=== PATIENT | female | born 1950 | race American Indian/Alaskan Native ===

== ENCOUNTER 2019-01-06 13:17 | Emergency (ER) | payer OTHER ==
[2019-01-06 13:17] VITALS: BMI 38.7
[2019-01-06 13:33] VITALS: RESP 20
--- NOTE | 2019-01-06 14:53 | CT ---
Date of service: 01/06/2019 PROCEDURE: CT HEAD WITHOUT CONTRAST. HISTORY: Head injury s/p fall at work today COMPARISON: Noncontrast head CT performed 03/27/16 TECHNIQUE: Axial computed tomography images were obtained through the head/brain without intravenous contrast. Radiation dose: Total exam DLP = 1134.39 mGy-cm. This CT exam was performed using one or more of the following dose reduction techniques: Automated exposure control, adjustment of the mA and/or kV according to patient size, and/or use of iterative reconstruction technique. FINDINGS: HEMORRHAGE: No intracranial hemorrhage. BRAIN: No mass effect or edema. The martinez-white matter differentiation appears intact. Please note that MRI with diffusion imaging is more sensitive in the detection of acute ischemic event. VENTRICLES: No hydrocephalus. CALVARIUM: Unremarkable. PARANASAL SINUSES: Unremarkable as visualized. No significant inflammatory changes. MASTOID AIR CELLS: Unremarkable as visualized. No inflammatory changes. OTHER FINDINGS: None. IMPRESSION: No acute intracranial pathology identified.
--- NOTE | 2019-01-06 16:13 | RAD ---
PROCEDURE: Right Knee Radiographs. HISTORY: Pain s/p fall today COMPARISON: None available FINDINGS: BONES: No acute displaced fracture. Suprapatellar and infrapatellar enthesophytes. JOINTS: No dislocation. JOINT EFFUSION: Moderate suprapatellar joint effusion. OTHER FINDINGS: None. IMPRESSION: Degenerative changes. Moderate suprapatellar joint effusion. No acute displaced fracture or dislocation identified.If symptoms persist, or if there is continued clinical concern, x-ray follow-up in 7-10 days should be considered.
--- NOTE | 2019-01-06 16:26 | RAD ---
Date of service: 01/06/2019 PROCEDURE: Radiographs of the left elbow. HISTORY: Pain s/p fall today COMPARISON: No prior. TECHNIQUE: 3 views obtained. FINDINGS: BONES: Nondisplaced radial head fracture, intra-articular. No other fracture identified. JOINTS: Normal. No osteoarthritis. SOFT TISSUES: Normal. JOINT EFFUSION: There is evidence of joint effusion/hemarthrosis. OTHER FINDINGS: None IMPRESSION: Nondisplaced intra-articular radial head fracture.
--- NOTE | 2019-01-06 16:30 | RAD ---
PROCEDURE: Right Hip Radiographs. HISTORY: Pain s/p fall today COMPARISON: None. TECHNIQUE: 2 views obtained. FINDINGS: BONES: No fracture. Sclerosis about the symphysis pubis may reflect osteitis pubis. JOINTS: Osteoarthritis of the right hip. SOFT TISSUES: Normal. OTHER FINDINGS: None. IMPRESSION: No acute fracture. Possible osteitis pubis. Osteoarthritis of the right hip.
--- NOTE | 2019-01-06 16:45 | C.PDOC ---
History Of Present Illness Pt suffered a mechanical fall while at work. - HPI Time Seen by Provider: 01/06/19 13:42 Chief Complaint (Nursing): Trauma History Per: Patient, EMS Injury Occurred (Timing): Just Before Arrival Location Of Injury: Right: Hip, Knee, Left: Elbow, Anterior: Head Severity: Moderate Additional History Per: Prior Records - Fall Fall:Prior To Injury: Lost Balance Past Medical History Reviewed: Historical Data, Nursing Documentation, Vital Signs Vital Signs: Last Vital Signs Temp 97.9 F 01/06/19 13:28 Pulse 57 L 01/06/19 13:28 Resp 20 01/06/19 13:28 BP 156/90 H 01/06/19 13:28 Pulse Ox 100 01/06/19 13:28 - Medical History PMH: Asthma, Bronchitis, HTN, Sleep Apnea Surgical History: Appendectomy - [facility] Procedures EXC LES SOFT TISSUE NEC (08/24/14) EXCIS LESION OF MUSCLE (10/20/14) LYMPHATIC STRUCT BIOPSY (08/24/14) Family History: States: Unknown Family Hx - Social History Hx Tobacco Use: No Hx Alcohol Use: No Hx Substance Use: No - Immunization History Hx Tetanus Toxoid Vaccination: No Hx Influenza Vaccination: No Hx Pneumococcal Vaccination: No Review Of Systems Except As Marked, All Systems Reviewed And Found Negative. Constitutional: Negative for: Fever Cardiovascular: Negative for: Chest Pain Respiratory: Negative for: Shortness of Breath Gastrointestinal: Negative for: Nausea, Vomiting, Abdominal Pain Genitourinary: Negative for: Hematuria Musculoskeletal: Positive for: Arm Pain (left lower). Negative for: Neck Pain, Back Pain Skin: Negative for: Rash Neurological: Negative for: Weakness, Numbness, Seizures, Altered Mental Status Physical Exam - Physical Exam Appears: Non-toxic, No Acute Distress Skin: Normal Color, Warm, Dry Head: Normacephalic, No Laceration, Other (Contusion on forehead and face) Eye(s): bilateral: PERRL, EOMI Ear(s): Bilateral: Normal Neck: Normal ROM, No Midline Cervical Tenderness, No Step Off Deformity, Supple Chest: Symmetrical, No Deformity, No Tenderness Cardiovascular: Rhythm Regular Respiratory: Normal Breath Sounds, No Accessory Muscle Use Gastrointestinal/Abdominal: Soft, No Tenderness Back: No Vertebral Tenderness Extremity: Tenderness (left elbow, right hip and right knee), Capillary Refill (wnl), No Deformity Extremity: Left: Limited ROM To Joint (Elbow), Bilateral: Pelvis-Stable Pulses: Left Radial: Normal, Right Radial: Normal, Right Dorsalis Pedis: Normal Neurological/Psych: Oriented x3, Normal Motor, Normal Sensation ED Course And Treatment O2 Sat by Pulse Oximetry: 100 Pulse Ox Interpretation: Normal - Other Rad Left elbow x-rays X-Ray: Viewed By Me, Read By Radiologist Interpretation: IMPRESSION: Nondisplaced intra-articular radial head fracture. Right hip x-rays X-Ray: Viewed By Me, Read By Radiologist Interpretation: IMPRESSION: No acute fracture. Possible osteitis pubis. Osteoarthritis of the right hip. Right knee x-rays X-Ray: Viewed By Me, Read By Radiologist Interpretation: IMPRESSION: Degenerative changes. Moderate suprapatellar joint effusion. No acute displaced fracture or dislocation identified.If symptoms persist, or if there is continued clinical concern, x-ray follow-up in 7-10 days should be considered. - CT Scan/US CT head Other Rad Studies (CT/US): Read By Radiologist, Radiology Report Reviewed CT/US Interpretation: IMPRESSION: No acute intracranial pathology identified. Reassessment Condition: Improved Orthopedic Procedure: Splint Type: Posterior Location: Left, Arm Consent obtained: Verbal Performed by: Attending Physician Diagnosis: Fracture Type: Closed Location: Left, Proximal Bone: Radius Systemic Analgesia: Ketorolac Capillary refill: Normal Distal Sensation: Normal Distal Motor Function: Normal Capillary Refill: Normal Compartment: Normal Distal Sensation: Normal Distal Motor Function: Normal Patient tolerated procedure: Well Disposition Counseled Patient/Family Regarding: Studies Performed, Diagnosis, Need For Followup, Rx Given - Disposition Referrals: Chino Ford MD [Staff Provider] - Disposition: HOME/ ROUTINE Disposition Time: 17:17 Condition: STABLE Additional Instructions: Keep your splint clean and dry. Follow up with an orthopedic tech for further evaluation and treatment. Return to the ER if you develop weakness, numbness, severe pain, worsening of symptoms or if you have any other concerns. Prescriptions: Naproxen 375 mg PO BID PRN #20 tablet PRN Reason: Pain, Moderate (4-7) Instructions: Elbow Fracture (DC), How to Use a Shoulder Sling Forms: Right90 (Chinese) - Clinical Impression Clinical Impression: Fracture of radial head, left, closed, Fall, Minor closed head injury, Work related injury, Knee effusion, right
[2019-01-06 17:24] VITALS: BP 131/87; PULSE 58; TEMP 100.3; O2SAT 98
== END 2019-01-06 17:50 | disposition home or self-care (01) ==
LOC: C.ER 13:17
DX: S52.125A Nondisplaced fracture of head of left radius, initial encounter for closed fracture (principal); S09.90XA Unspecified injury of head, initial encounter; W01.0XXA Fall on same level from slipping, tripping and stumbling without subsequent striking against object, initial encounter; Y92.89 Other specified places as the place of occurrence of the external cause; Y99.0 Civilian activity done for income or pay; M25.461 Effusion, right knee
CPT/HCPCS: 70450; 73080; 73502; 73562; 96372; 99284; J1885